=== PATIENT | male | born 1995 | race Caucasian/White ===

== ENCOUNTER 2018-12-24 14:53 | Emergency (ER) | payer BC ==
[~2018-12-24] VITALS: Ht 167.6 cm; Wt 88.9 kg
[~2018-12-24 14:53] MED LIST: IBUP800 PO; Norco 5-325 Ta1 EACH PO
[2018-12-24] MEDS ORDERED: CEPH500 PO (16:26)
== END 2018-12-24 16:47 | disposition home or self-care (01) ==
LOC: ER 14:53
DX: S61.412A Laceration without foreign body of left hand, initial encounter (principal); F17.200 Nicotine dependence, unspecified, uncomplicated; W01.0XXA Fall on same level from slipping, tripping and stumbling without subsequent striking against object, initial encounter
CPT/HCPCS: 29125; 99282-25; L3917

== ENCOUNTER 2021-08-26 12:22 | Emergency (ER) | payer OTHER ==
[~2021-08-26] VITALS: Ht 167.6 cm; Wt 99.8 kg
[~2021-08-26 12:22] MED LIST changes: +CEPH500 PO
[2021-08-26] MEDS ORDERED: TRAM50 PO (12:43)
== END 2021-08-26 14:37 | disposition home or self-care (01) ==
LOC: ER 12:22
DX: U07.1 COVID-19 (principal); F17.200 Nicotine dependence, unspecified, uncomplicated
CPT/HCPCS: 99283

== ENCOUNTER 2022-11-01 08:23 | Day surgery (SDC) | payer OTHER ==
[~2022-11-01] VITALS: Ht 167.6 cm; Wt 93.4 kg
[~2022-11-01 08:23] MED LIST changes: +TRAM50 PO
--- NOTE | 2022-11-01 13:03 | NUR ---
11/01/22 1303 [place] LATE ENTRY FOR TODAY. PATIENT CONTINUES TO C/O 12/01 PAIN BUT STATES THAT HE JUST WANTS TO GO HOME. RN CONFIRMED THAT PATIENT HAS PAIN/NAUSEA MEDICATIONS AT HOME. GIRLFRIEND STATED THEY NEED TO PICK THEM UP FROM THE PHARMACY. VSS. PT WAS DISCHARGED HOME.
== END 2022-11-01 13:00 | disposition home or self-care (01) ==
LOC: ORSCSDS 08:23
PROVIDERS: Otolaryngology
PROC: 09BM0ZZ Excision of Nasal Septum, Open Approach (ICD-10-PCS; principal; 2022-11-01 10:00)
PROC: 09SL0ZZ Reposition Nasal Turbinate, Open Approach (ICD-10-PCS; principal; 2022-11-01 10:00)
DX: J34.2 Deviated nasal septum (principal); J34.3 Hypertrophy of nasal turbinates; F41.9 Anxiety disorder, unspecified; F17.290 Nicotine dependence, other tobacco product, uncomplicated
CPT/HCPCS: C1776; J0171; J1100; J2250; J2405; J2704; J3010; J7120

== ENCOUNTER → 2023-09-05 | Outpatient (CLI) | payer OTHER ==
[2023-09-07 10:50] LABS: APTIMA MEDIA TYPE Urine; C. TRACHOMATIS BY TMA Negative (Negative); N. GONORRHOEAE BY TMA Negative (Negative); SPECIMEN SOURCE Urine
== END ==
LOC: LAB 12:29 → LAB SHORT 12:29
PROVIDERS: Family Medicine
DX: R30.0 Dysuria (principal)
CPT/HCPCS: 87491; 87591

== ENCOUNTER → 2024-09-20 | Outpatient (CLI) | payer BC, OTHER ==
[2024-09-20 10:06] LABS: BASOPHILS ABSOLUTE AUTO 0.03 K/mm3 (0.00-0.23); BASOPHILS PERCENT AUTO 0 % (0-2); EOSINOPHILS ABSOLUTE AUTO 0.12 K/mm3 (0.00-0.68); EOSINOPHILS PERCENT AUTO 2 % (0-6); Hematocrit 41.8 % (37.0-53.0); Hemoglobin 14.6 g/dL (13.5-17.5); IMMATURE GRAN ABSOLUTE AUTO 0.02 K/mm3 (0.00-0.10); IMMATURE GRAN PERCENT AUTO 0 % (0-1); LYMPHOCYTES ABSOLUTE AUTO 2.75 K/mm3 (0.84-5.20); LYMPHOCYTES PERCENT AUTO 38 % (21-46); MONOCYTES ABSOLUTE AUTO 0.74 K/mm3 (0.16-1.47); MONOCYTES PERCENT AUTO 10 % (4-13); Mean Corpuscular HGB 28.7 pg (26.0-34.0); Mean Corpuscular HGB Conc 34.9 g/dL (31.5-36.5); Mean Corpuscular Volume 82 fL (80-100); Mean Platelet Volume 9.1 fL (9.1-12.4); NEUTROPHILS ABSOLUTE AUTO 3.54 K/mm3 (1.96-9.15); NEUTROPHILS PERCENT AUTO 49 % (41-73); Platelet Count 357 K/mm3 (150-400); RDW Coefficient Variation 13.1 % (11.7-14.2); RDW Standard Deviation 39.3 fL (35.1-46.3); Red Blood Cell Count 5.09 M/mm3 (4.30-5.90)
[2024-09-20 10:27] LABS: Albumin, Blood 4.1 g/dL (3.4-5.0); Albumin/Globulin Ratio 1.2 (0.8-1.8); Bilirubin, Total 0.8 mg/dL (0.1-1.0); Bun/Creatinine Ratio 15.7 (12.0-20.0); Calcium, Blood 8.9 mg/dL (8.5-10.1); Creatinine, Blood 0.89 mg/dL (0.60-1.20); Globulin, Blood 3.3 g/dL (2.2-4.0); Magnesium, Blood 2.2 mg/dL (1.6-2.4); Thyroid Stimulating Hormone 1.065 uIU/mL (0.360-4.800); Total Protein, Blood 7.4 g/dL (6.4-8.2)
== END | disposition home or self-care (01) ==
LOC: LAB SHORT 10:01
PROVIDERS: Chiropractor
DX: R07.89 Other chest pain (principal); R53.83 Other fatigue; R73.9 Hyperglycemia, unspecified
CPT/HCPCS: 80053; 83036; 83735; 84443; 84484; 85025; 85379